=== PATIENT | female | born 1985 | race African-American/Black ===

== ENCOUNTER 2018-04-26 11:28 | Emergency (ER) | payer SELFPAY ==
[~2018-04-26] VITALS: Ht 162.6 cm; Wt 88.0 kg
[~2018-04-26 11:28] MED LIST: ALBU05 IH
[2018-04-26] MEDS ORDERED: IBUPROFEN 600MG TABLET PO ONE (14:30)
[2018-04-26 15:43] VITALS: BP 122/70
== END 2018-04-26 16:14 | disposition home or self-care (01) ==
LOC: ER 11:28
DX: H60.91 Unspecified otitis externa, right ear (principal); J45.909 Unspecified asthma, uncomplicated; F17.210 Nicotine dependence, cigarettes, uncomplicated; Z98.890 Other specified postprocedural states
CPT/HCPCS: 81025; 99283